=== PATIENT | female | born 1975 | race Caucasian/White ===

== ENCOUNTER 2017-12-12 19:50 | Emergency (ER) | payer OTHER ==
[~2017-12-12] VITALS: Ht 162.6 cm; Wt 68.0 kg
== END 2017-12-13 02:15 | disposition home or self-care (01) ==
LOC: ER 19:50
DX: K62.5 Hemorrhage of anus and rectum (principal)

== ENCOUNTER 2019-04-10 19:57 | Emergency (ER) | payer OTHER ==
[~2019-04-10] VITALS: Ht 162.6 cm; Wt 68.0 kg
== END 2019-04-11 00:02 | disposition home or self-care (01) ==
LOC: ER 19:57
DX: T24.232A Burn of second degree of left lower leg, initial encounter (principal); X19.XXXA Contact with other heat and hot substances, initial encounter; Y93.89 Activity, other specified; Y92.098 Other place in other non-institutional residence as the place of occurrence of the external cause; Y99.8 Other external cause status